=== PATIENT | male | born 1970 | race Caucasian/White ===

== ENCOUNTER 2016-09-30 20:18 | Emergency (ER) ==
--- NOTE | 2016-09-30 22:43 | PROVIDER DOCUMENTATION ---
HPI-Musculoskeletal Pain/Inj - GENERAL Chief Complaint: Extremity Pain Stated Complaint: LEFT HIP/LEG PAIN Time Seen by Provider: 09/30/16 22:36 Source: patient - HX OF PRESENT ILLNESS-MUSKULOSKELTAL Nature of Presenting Problem: 46 y/o M c/o L hip pain x 18 months, worse. States that he has had R hip replacement in the past. Reports that this feels the same. States he came tonight because he couldn't stand the pain any more. Pain /. States using heat and ice for pain, with little relief. Reports that Dr. Cuenca is his orthopedic surgeon in . Review of Systems - Adult - REVIEW OF SYSTEMS - ADULT Constitutional: reports: no symptoms reported. denies: chills, fever Eyes: reports: no symptoms reported. denies: blurred vision, double vision Ears, Nose, Mouth & Throat: reports: no symptoms reported. denies: ear pain, nose pain Cardiovascular: reports: no symptoms reported. denies: chest pain, palpitations Respiratory: reports: no symptoms reported. denies: dyspnea on exertion, shortness of breath Gastrointestinal: reports: no symptoms reported. denies: nausea, vomiting Genitourinary: reports: no symptoms reported. denies: dysuria, frequency Musculoskeletal: reports: see HPI, joint pain. denies: back pain, neck pain Integumentary: reports: no symptoms reported. denies: nail changes, rash Neurological: reports: no symptoms reported. denies: numbness, paresthesia Psychiatric: reports: no symptoms reported Endocrine: reports: no symptoms reported. denies: cold intolerance, heat intolerance Hematologic/Lymphatic: reports: no symptoms reported. denies: easy bruising, prolonged bleeding Allergic/Immunologic: reports: no symptoms reported All Other Systems: Reviewed and Negative Past History - Adult - PAST MEDICAL HISTORY-ADULT Review of Records: reports: Nursing Assessment Review, Medications Reviewed Major Childhood Illnesses: reports: denies history Cardiovascular: reports: denies history Respiratory: reports: denies history Gastrointestinal: reports: denies history Obstetrical/Gynecological: reports: denies history Genitourinary: reports: denies history Musculoskeletal: reports: denies history Neurological: reports: denies history Endocrine/Immune: reports: denies history Other Conditions: reports: denies history - SOCIAL HISTORY Smoking: quit greater than 1 year Physical Exam-Injury Related - Physical Exam-Injury Related Initial Vital Signs Reviewed: Yes General Appearance: alert, mild distress, obese Eyes: pink conjunctivae Head, Ears, Nose, Mouth & Throat: normocephalic/atraumatic Neck: normal inspection Respiratory: lungs clear, normal breath sounds. negative: crackles, rales, rhonchi, stridor, wheezing Cardiovascular: normal peripheral pulses, regular rate, rhythm. negative: bradycardia, tachycardia Peripheral Pulses: dorsalis-pedis (R): 1+, dorsalis-pedis (L): 1+ Back Exam: normal inspection, no vertebral tenderness Extremity: normal capillary refill, tenderness (lateral and anterior L hip pain) . negative: normal gait, abnormal NV exam, deformity, pulse deficit Integumentary: normal color, warm/dry, blanching Neurologic: negative: aphasia, sensory deficit Psych/Mental Status: normal mood/affect, normal thought content, normal thought process, oriented x 3 Progress - PLAN OF CARE/RESULTS Progress/Plan/Lab Results: Orders Category Date Time Status XRAY PELVIS W/HIP 2-3VW LT [RAD] Stat Exams 10/01/16 00:00 Completed Hydrocodone/APAP 7.5 mg/325 mg [[place]-7.5] Med 10/01/16 00:35 Discontinued 1 each PO NOW ONE Ondansetron Odt [Zofran Odt] Med 10/01/16 00:35 Discontinued 4 mg PO NOW ONE Vital Signs Temp Pulse Resp BP Pulse Ox 10/01/16 00:57 98.1 F 76 18 150/102 98 09/30/16 20:42 98.1 F 92 H 18 167/100 97 fentanyl Allergy (Intermediate, Verified 04/30/16 19:40) NAUSEA meloxicam [From Mobic] Allergy (Intermediate, Verified 04/30/16 19:40) NAUSEA Omeprazole [Prilosec] 20 mg PO DAILY@0700 #20 capsule 01/02/16 Clonazepam [Klonopin] 2 mg PO TID 04/30/16 Famotidine [Pepcid] 20 mg PO DAILY #20 tablet 04/30/16 Hydrocodone/APAP 10 mg/325 mg [[place]-10] 1 tab PO BID 04/30/16 Ketorolac [Toradol] 10 mg PO Q6H PRN PRN #20 tablet 10/15/16 Acetaminophen/Diphenhydramine [Percogesic Extra Str Caplet] 1 each PO Q6H PRN PRN #20 tablet 10/01/16 OBESITY, UNSPECIFIED (09/30/16) UNILATERAL PRIMARY OSTEOARTHRITIS, LEFT HIP (09/30/16) PAIN IN LEFT HIP (09/30/16) PRESENCE OF RIGHT ARTIFICIAL HIP JOINT (09/30/16) Discussed results and f/u with pt. - XRAY 1 XRAY: Left XRAY Study: Pelvis, Hip XRAY Interpretation: worsening arthritic changes compared to 12/2015 Departure - Departure Time of Disposition Order: 00:31 DIAGNOSIS: Hip arthritis Disposition: HOME 01 Certified Medical Emergency: Emergent Condition: Stable Additional Instructions: Follow up with your orthopedist for further management or with Dr. Pan for hip replacement evaluation. ED Follow Up Instructions: You have been treated by a care provider in the Emergency Department. These instructions are being provided to you so you can have an understanding of how to care for yourself upon discharge. Upon discharge from the Emergency Department, you are responsible for making arrangements for follow-up care by a physician of your choice. Take all prescribed medications as directed. Return to the Emergency Department immediately for any new or worsening symptoms. You may call the Physician Referral phone number at [phone] to obtain a list of Physicians who are taking new patients. Prescriptions: Acetaminophen/Diphenhydramine [Percogesic Extra Str Caplet] 1 each PO Q6H PRN PRN #20 tablet PRN Reason: Pain Referrals: Benton Montoya [Primary Care Provider] - Giovanna Pan MD [STAFF PHYSICIAN] - Forms: Return to School/Parent Work Instructions: Hip Pain, Arthritis, Nonspecific, [id number] Attestation - Physician/ RAUL Attestation Patient care was provided by Advanced Practice Provider:: Yes Advanced Practice Provider:: Lolis Daigle Advanced Practice Provider documentation review:: The Mid-level provider documentation, treatment plan and medical decision making was reviewed by the physician who agrees with all treatment and medical decision making by the MLP.
[2016-10-01] MEDS ORDERED: ZOFRAN ODT PO ONE (00:35)
[2016-10-01] MEDS ORDERED: NORCO-7.5 PO ONE (00:35)
[2016-10-01 00:58] VITALS: BP 150/102
--- NOTE | 2016-10-01 11:47 | Diag Imaging Result Document ---
PROCEDURE NAME: XRAY PELVIS W/HIP 2-3VW LT - 10/01/2016 PLAIN RADIOGRAPH OF THE PELVIS AND LEFT HIP, 3 VIEWS: COMPARISON: 01/02/2016. FINDINGS: There has been prior right hip arthroplasty. The arthroplasty hardware is in stable position. There is severe degenerative arthropathy involving the left hip with marked joint space narrowing and flattening of the humeral head. This appears to be stable, however. No discrete fracture, dislocation, or intrinsic osseous lesion is identified, otherwise. IMPRESSION: Severe but stable degenerative joint disease involving the left hip.
== END 2016-10-01 00:57 | disposition home or self-care (01) ==
LOC: P.ED 20:18
DX: M16.12 Unilateral primary osteoarthritis, left hip (principal); M25.552 Pain in left hip; E66.9 Obesity, unspecified; Z96.641 Presence of right artificial hip joint
CPT/HCPCS: 99283